=== PATIENT | female | born 1990 | race Two or more races ===

== ENCOUNTER 2020-04-16 13:11 | Outpatient (CLI) | payer MEDICAID ==
[~2020-04-16] VITALS: Ht 165.1 cm; Wt 60.8 kg
[2020-04-16 14:05] VITALS: BP 120/75
[2020-04-16] MEDS ORDERED: OMEPRAZOLE20 M2 ORAL (14:05)
[2020-04-16] MEDS ORDERED: FAMOTIDINE20 MG ORAL (14:05)
--- NOTE | 2020-04-16 20:30 | Consultation ---
DATE OF CONSULTATION: 04/16/2020 CONSULTING PHYSICIAN: Ming Andrade MD. CHIEF COMPLAINT: Abdominal pain. HISTORY OF PRESENT ILLNESS: This is a 30-year-old female, in [place] was diagnosed with H. pylori infection, was given antibiotics, but she had a very bad reaction with mouth swelling. She most probably thought it was Flagyl based. Also she thinks that she saw some worm in her stool. PAST MEDICAL HISTORY: 1. GERD. 2. Peptic ulcer disease. 3. H. pylori positive gastritis. PAST SURGICAL HISTORY: None. MEDICATIONS: Please see medication reconciliation list. FAMILY HISTORY: Noncontributory. Mother had breast cancer. SOCIAL HISTORY: Patient denies any tobacco, alcohol, or drug abuse. ALLERGIES: No known drug allergies. REVIEW OF SYSTEMS: A 10-point review of systems was performed and pertinent positives in HPI. PHYSICAL EXAMINATION: VITAL SIGNS: Temperature 98.9, blood pressure 120/75, pulse is 91, respirations 20. HEENT: Normocephalic, atraumatic. Sclerae anicteric. NECK: Supple. No evidence of obvious lymphadenopathy. CARDIOVASCULAR: Regular rate and rhythm. Plus S1-S2. LUNGS: Clear to auscultation bilaterally. ABDOMEN: Positive bowel sounds. Soft and nontender. No rebound. No guarding. No peritoneal sign. EXTREMITIES: No cyanosis. No clubbing. No edema. ASSESSMENT AND PLAN: This is a 30-year-old female with severe GERD, history of recent H. pylori treatment with diarrhea reaction to Flagyl, also questionable worm seen in the stool. Plan, stool for O and P x3. Manage GERD with PPI b.i.d. and baclofen at nighttime. We will plan to get endoscopy as scheduled. Ming Andrade M.D. DR: BRYNN JOB#: [id number] CC:
== END 2020-04-16 15:11 | disposition home or self-care (01) ==
LOC: PAN 13:11
DX: R10.9 Unspecified abdominal pain (principal); K21.9 Gastro-esophageal reflux disease without esophagitis; Z87.11 Personal history of peptic ulcer disease
CPT/HCPCS: G0463

== ENCOUNTER 2020-07-03 13:52 | Outpatient (CLI) | payer MEDICAID ==
[~2020-07-03 13:52] MED LIST: FAMOTIDINE20 MG ORAL; OMEPRAZOLE20 M2 ORAL
--- NOTE | 2020-07-03 15:57 | General Progress Note ---
Subjective ROS Limited/Unobtainable: Yes Allergies: Coded Allergies: No Known Allergies (Unverified , 04/16/20) Objective General Appearance: alert EENT: normal ENT inspection Neck: supple Cardiovascular: normal rate Respiratory/Chest: decreased breath sounds Abdomen: normal bowel sounds, non tender, soft Extremities: non-tender Assessment/Plan Assessment/Plan: chronic GERD s/p EGD [place] off ppi chronic constipation start colace and miralax consider Trulance if no improvement Ming Andrade MD Jul 03, 2020 15:57
== END 2020-07-03 15:52 | disposition home or self-care (01) ==
LOC: PAN 13:52
DX: K21.9 Gastro-esophageal reflux disease without esophagitis (principal); K59.09 Other constipation
CPT/HCPCS: 99212